=== PATIENT | male | born 1985 | race Asian ===

== ENCOUNTER 2016-11-04 08:26 | Emergency (ER) | payer OTHER ==
[~2016-11-04] VITALS: Ht 190.5 cm; Wt 133.8 kg
[2016-11-04 08:36] VITALS: BP_SYST 147
--- NOTE | 2016-11-04 08:39 | NUR ---
Patient to ER bed 7 to gown for evaluation. Side rails up. Report given to SALLY SCHAEFFER.
--- NOTE | 2016-11-04 08:45 | NUR ---
c/o left eye pain,redness,tearing,sensitive to the light since Saturday.denies any trama.
--- NOTE | 2016-11-04 08:50 | NUR ---
ER at bedside examining patient.
--- NOTE | 2016-11-04 08:51 | NUR ---
eye kit and woodslamp placed at bedside.
--- NOTE | 2016-11-04 09:56 | NUR ---
Patient given written and verbal discharge instructions and verbalizes understanding. ER MD discussed with patient the results and treatment provided. Patient in stable condition. ID arm band removed. Rx of x 1 given. Patient educated on pain management and to follow up with PMD. Pain Scale . Opportunity for questions provided and answered.
[2016-11-04 09:57] VITALS: BP_SYST 130
== END 2016-11-04 09:56 | disposition home or self-care (01) ==
LOC: SED 08:26
DX: H10.32 Unspecified acute conjunctivitis, left eye (principal); R03.0 Elevated blood-pressure reading, without diagnosis of hypertension
CPT/HCPCS: 99283